=== PATIENT | male | born 1950 | race Caucasian/White ===

== ENCOUNTER 2017-06-16 07:16 | Emergency (ER) | payer BC ==
[~2017-06-16] VITALS: Ht 172.7 cm; Wt 85.3 kg
[2017-06-16 07:17] VITALS: TEMP 36.5; Ht 172.7 cm; Wt 85.3 kg
[2017-06-16 07:39] LABS: URINE APPEARANCE CLEAR (CLEAR); URINE BILIRUBIN NEG (NEG); URINE COLOR DK YELLOW; URINE NITRITE NEG (NEG); URINE SPECIFIC GRAVITY 1.027 (1.000-1.030); UROBILINOGEN NEG (NEG); ZZUR CULT IF INDIC CLEAN CATCH NO
[2017-06-16 07:47] LABS: MANUAL MICROSCOPIC REQUIRED? NO; REVIEW REQ? NO
--- NOTE | 2017-06-16 07:55 | EMERGENCY ROOM VISIT NOTE ---
History First contact with patient: 07:22 Chief Complaint: ABDOMINAL PAIN Stated Complaint: PAIN IN LWR LEFT ABDOMEN Nursing Triage Summary: pt reports sensitivity in left lower abd recently moved down into hip and around to back pain is just below rib cage per pt. denies any n/v/d/c. reports lots of gas. appetite has also changed not wanting to eat because it makes him feel worse History of Present Illness The patient is a 67 year old male who presents to the Emergency Room with complaints of LLQ discomfort for the past 5 months on and off. He describes it as a colicky "pressure" or achiness, and does not describe sharp pain. episodes last around 3 hours at a time. Last night he was concerned as the pressure was more frequent and severe, rating it at a 7/10 level of discomfort. He reports discomfort more after eating and later in the day when he is more sedentary. He reports he is more gassy than usual. No change in stool consistency or color or frequency; he states he goes once daily regularly. Has noticed a diminished appetite related to not wanting to exacerbate symptoms. He denies diarrhea or vomiting. He denies fever or recent URI. He denies ran blood in his stool as well as black tarry stool. His last colonoscopy was in 2008 and was normal. He has GERD and takes zantac twice daily, previously on pantoprazole. His only abdominal surgery was in 1980 for removal of an esophageal polyp which was found to be non-cancerous. He has no PMH of renal calculi. The antacids help the discomfort temporarily but do not get rid of the problem. There is a positive family history of diverticulitis and renal calculi but no other significant fam hx of colon cancer, etc. Review of Systems See HPI for pertinent positives and negatives. A total of ten systems were reviewed and were otherwise negative. Past Medical/Surgical History Medical Problems: (1) Hypertension Social History Smoking Status: Never Smoker Marital Status: Housing Status: lives with family Occupation Status: retired Current/Historical Medications Scheduled Atorvastatin (Lipitor), 10 MG PO DAILY Ranitidine (Zantac), 150 MG PO BID Valsartan (Diovan), 80 MG PO DAILY Allergies Coded Allergies: Lisinopril (Unverified Allergy, Mild, cough, 06/16/17) Codeine (Verified Allergy, Unknown, RASH, 06/16/17) Uncoded Allergies: PENICILLIN (Allergy, Mild, RASH, 06/15/12) Resident Involvement: Resident Care Provided Care Provided: Adult ED Physical Exam Vital Signs Date Time Temp Pulse Resp B/P (MAP) Pulse Ox O2 Delivery O2 Flow Rate FiO2 06/16/17 07:17 36.5 61 18 149/85 98 Room Air Pain Rating (0-10): 7 Physical Exam GENERAL: Awake, alert, not ill appearing, no distress HEAD: Normocephalic, atraumatic. No edema. EYES: Normal conjunctiva. Sclera non-icteric. OROPHARYNX: Lips, tongue, and mucosa unremarkable. No erythema or exudate. NECK: Supple. No nuchal rigidity. FROM. No adenopathy. RESPIRATORY: CTA bilaterally. No wheezes rales or rhonchi. CARDIAC: Borderline tachycardic rate, normal rhythm. ABDOMEN: Soft, non distended. tenderness to palpation on left lateral lower quadrant. No rebound or guarding. MUSCULOSKELETAL: Atraumatic. No edema. No pain on hip examination, full ROM NEURO: Normal sensorium. SKIN: No rash or jaundice noted Medical Decision & Procedures Laboratory Results 06/16/17 07:50 Red Blood Count 4.86, Mean Corpuscular Volume 92.4, Mean Corpuscular Hemoglobin 32.3, Mean Corpuscular Hemoglobin Concent 35.0, Mean Platelet Volume 10.9, Neutrophils (%) (Auto) 44.2, Lymphocytes (%) (Auto) 41.7, Monocytes (%) (Auto) 9.2, Eosinophils (%) (Auto) 4.5, Basophils (%) (Auto) 0.4, Neutrophils # (Auto) 2.98, Lymphocytes # (Auto) 2.81, Monocytes # (Auto) 0.62, Eosinophils # (Auto) 0.30, Basophils # (Auto) 0.03 06/16/17 07:50 Test 06/16/17 07:25 06/16/17 07:50 Urine Color DK YELLOW Urine Appearance CLEAR (CLEAR) Urine pH 7.0 (4.5-7.5) Urine Specific [place] 1.027 (1.000-1.030) Urine Protein NEG (NEG) Urine Glucose (UA) NEG (NEG) Urine Ketones TRACE (NEG) Urine Occult Blood NEG (NEG) Urine Nitrite NEG (NEG) Urine Bilirubin NEG (NEG) Urine Urobilinogen NEG (NEG) Urine Leukocyte Esterase NEG (NEG) Urine WBC (Auto) 1-5 /hpf (0-5) Urine RBC (Auto) 0-4 /hpf (0-4) Urine Hyaline Casts (Auto) 1-5 /lpf (0-5) Urine Epithelial Cells (Auto) 10-20 /lpf (0-5) Urine Bacteria (Auto) NEG (NEG) White Blood Count 6.74 K/uL (4.8-10.8) Red Blood Count 4.86 M/uL (4.7-6.1) Hemoglobin 15.7 g/dL (14.0-18.0) Hematocrit 44.9 % (42-52) Mean Corpuscular Volume 92.4 fL (80-100) Mean Corpuscular Hemoglobin 32.3 pg (25-34) Mean Corpuscular Hemoglobin Concent 35.0 g/dl (32-36) Platelet Count 175 K/uL (130-400) Mean Platelet Volume 10.9 fL (7.4-10.4) Neutrophils (%) (Auto) 44.2 % Lymphocytes (%) (Auto) 41.7 % Monocytes (%) (Auto) 9.2 % Eosinophils (%) (Auto) 4.5 % Basophils (%) (Auto) 0.4 % Neutrophils # (Auto) 2.98 K/uL (1.4-6.5) Lymphocytes # (Auto) 2.81 K/uL (1.2-3.4) Monocytes # (Auto) 0.62 K/uL (0.11-0.59) Eosinophils # (Auto) 0.30 K/uL (0-0.5) Basophils # (Auto) 0.03 K/uL (0-0.2) RDW Standard Deviation 42.5 fL (36.4-46.3) RDW Coefficient of Variation 12.6 % (11.5-14.5) Immature Granulocyte % (Auto) 0.0 % Immature Granulocyte # (Auto) 0.00 K/uL (0.00-0.02) Anion Gap 8.0 mmol/L (3-11) Est Creatinine Clear Calc Drug Dose 72.6 ml/min Estimated GFR () 84.7 Estimated GFR (Non- 73.1 BUN/Creatinine Ratio 19.0 (10-20) Calcium Level 9.1 mg/dl (8.5-10.1) Total Bilirubin 1.0 mg/dl (0.2-1) Direct Bilirubin 0.2 mg/dl (0-0.2) Aspartate Amino Transf (AST/SGOT) 24 U/L (15-37) Alanine Aminotransferase (ALT/SGPT) 46 U/L (12-78) Alkaline Phosphatase 47 U/L (45-117) Total Protein 7.3 gm/dl (6.4-8.2) Albumin 3.9 gm/dl (3.4-5.0) Lipase 183 U/L (73-393) Medications Administered Medications (Trade) Dose Ordered Sig/Anthony Route Start Time Stop Time Status Last Admin Dose Admin Sodium Chloride 999 ml @ 999 mls/hr Q1H IV 06/16/17 08:00 06/16/17 08:12 DC 06/16/17 08:12 999 MLS/HR ED Course 0720: first contact with patient, full H&P obtained 0800: 500 ml bolus NSS ordered, CT Abdo/pelvis with IV contrast ordered. 0900: updated patient on results of CT scan; discussed using miralax daily for 1 -2 weeks and monitor response to LLQ discomfort. Medical Decision Prior records/ancillary studies reviewed. Triage Nursing notes reviewed. The patient's history was concerning for abdominal pain. Differential diagnosis: Etiologies such as appendicitis, diverticulitis, PUD, biliary pathology, UTI, pancreatitis, obstruction, mesenteric ischemia, aortic pathology, infections, inflammatory bowel disease, renal colic, as well as others were entertained. Physical examination findings: As above. ER treatment provided: 500 mL NSS bolus, Ct Abdo/pelvis Diagnostics interpreted by me: The labs revealed NAD Imaging studies: CT SCAN OF THE ABDOMEN AND PELVIS WITH IV CONTRAST CLINICAL HISTORY: Left lower quadrant abdominal pain. COMPARISON STUDY: Abdominal ultrasound dated 06/22/2013. TECHNIQUE: Following the IV administration of 93 cc of Optiray 320, CT scan of the abdomen and pelvis is performed from the lung bases to the proximal femora. Images are reviewed in the axial, sagittal, and coronal planes. IV contrast was administered without complication. A dose lowering technique was utilized adhering to the principles of ALARA. CT DOSE: 468.77 mGy.cm FINDINGS: Lung bases: The heart is enlarged and without pericardial effusion. There are coronary artery calcifications. Foci of atelectasis versus scarring are present at the lung bases, left greater than right. No airspace consolidation or pleural effusion is seen. There is a small hiatal hernia. Liver: The contrast-enhanced liver is normal in size, contour, and attenuation. There is no intrahepatic biliary ductal dilatation. The hepatic veins and portal veins are patent. Gallbladder: Unremarkable. Spleen: Normal in size and attenuation. Pancreas: Unremarkable. Adrenal glands: Unremarkable. Kidneys: The contrast enhanced kidneys are normal in size and without hydronephrosis. The kidneys enhance symmetrically. There is a 2 mm nonobstructing right renal calculus. Abdominal vasculature: The abdominal aorta is normal in course and caliber noting moderate atherosclerotic calcification. Bowel: There are scattered colonic diverticula without CT evidence of acute diverticulitis. No bowel obstruction is seen. Moderate colonic fecal retention is observed. The appendix is well-visualized and normal. Peritoneum: There is no intraperitoneal free air or abdominal ascites. There is a fat-containing umbilical hernia. Lymphadenopathy: None. Pelvic viscera: The prostate gland is mildly enlarged and heterogeneous. The bladder is normal as visualized. Skeletal structures: There is moderate lumbosacral spondylosis. No lytic or blastic lesions are seen. IMPRESSION: 1. There are no acute infectious or inflammatory findings in the abdomen or pelvis. 2. Cardiomegaly. 3. There is a tiny nonobstructing right renal calculus. 4. Moderate constipation. No bowel obstruction is seen. 5. Additional findings as above. Referral: The patient was referred back to their primary care physician for follow-up in 2 to 3 days for a recheck of the current condition. Discussed using miralax daily for 1-2 weeks and adjusting dose if loose stool develop. If no improvement of discomfort, please return to ED or PCP. Impression Primary Impression: Abdominal pain Departure Information Dispostion Home / Self-Care Condition GOOD Referrals No Doctor, Assigned (PCP) Patient Instructions Abdominal Pain - [facility], Pending Sale To [facility]
[2017-06-16] MEDS ORDERED: SODIUM CHLORIDE 0.9% 500ML 500 ML IV SCH ×2 (08:00→09:00)
[2017-06-16 08:01] LABS: BASO % 0.4 %; BASO ABS # 0.03 K/uL (0-0.2); COMPLETE YES; EOS % 4.5 %; HEMATOCRIT 44.9 % (42-52); LYMPH % 41.7 %; LYMPH ABS # 2.81 K/uL (1.2-3.4); MEAN CELL VOLUME 92.4 fL (80-100); MEAN CORPUSCULAR HEMOGLOBIN 32.3 pg (25-34); MEAN PLATELET VOLUME 10.9 fL (7.4-10.4); MONO % 9.2 %; NEUT % 44.2 %; PLATELET COUNT 175 K/uL (130-400); RED BLOOD COUNT 4.86 M/uL (4.7-6.1); WHITE BLOOD COUNT 6.74 K/uL (4.8-10.8)
[2017-06-16] MEDS ORDERED: SODIUM CHLORIDE 0.9% 500ML 500 ML IV ONE (08:01)
[2017-06-16 08:12] LABS: CALCIUM 9.1 mg/dl (8.5-10.1); CREATININE 1.05 mg/dl (0.60-1.40)
[2017-06-16] MEDS ORDERED: ZNTT/150 PO (08:22)
[2017-06-16] MEDS ORDERED: DVN80 PO (08:22)
[2017-06-16] MEDS ORDERED: ATOR10TA82 PO (08:22)
[2017-06-16] MEDS ORDERED: OPTIRAY 320 IV PRN (08:45)
--- NOTE | 2017-06-16 08:49 | DIAGNOSTIC IMAGING REPORT ---
CT SCAN OF THE ABDOMEN AND PELVIS WITH IV CONTRAST CLINICAL HISTORY: Left lower quadrant abdominal pain. COMPARISON STUDY: Abdominal ultrasound dated 06/22/2013. TECHNIQUE: Following the IV administration of 93 cc of Optiray 320, CT scan of the abdomen and pelvis is performed from the lung bases to the proximal femora. Images are reviewed in the axial, sagittal, and coronal planes. IV contrast was administered without complication. A dose lowering technique was utilized adhering to the principles of ALARA. CT DOSE: 468.77 mGy.cm FINDINGS: Lung bases: The heart is enlarged and without pericardial effusion. There are coronary artery calcifications. Foci of atelectasis versus scarring are present at the lung bases, left greater than right. No airspace consolidation or pleural effusion is seen. There is a small hiatal hernia. Liver: The contrast-enhanced liver is normal in size, contour, and attenuation. There is no intrahepatic biliary ductal dilatation. The hepatic veins and portal veins are patent. Gallbladder: Unremarkable. Spleen: Normal in size and attenuation. Pancreas: Unremarkable. Adrenal glands: Unremarkable. Kidneys: The contrast enhanced kidneys are normal in size and without hydronephrosis. The kidneys enhance symmetrically. There is a 2 mm nonobstructing right renal calculus. Abdominal vasculature: The abdominal aorta is normal in course and caliber noting moderate atherosclerotic calcification. Bowel: There are scattered colonic diverticula without CT evidence of acute diverticulitis. No bowel obstruction is seen. Moderate colonic fecal retention is observed. The appendix is well-visualized and normal. Peritoneum: There is no intraperitoneal free air or abdominal ascites. There is a fat-containing umbilical hernia. Lymphadenopathy: None. Pelvic viscera: The prostate gland is mildly enlarged and heterogeneous. The bladder is normal as visualized. Skeletal structures: There is moderate lumbosacral spondylosis. No lytic or blastic lesions are seen. IMPRESSION: 1. There are no acute infectious or inflammatory findings in the abdomen or pelvis. 2. Cardiomegaly. 3. There is a tiny nonobstructing right renal calculus. 4. Moderate constipation. No bowel obstruction is seen. 5. Additional findings as above. Electronically signed by: Naveed Quintana M.D. 06/16/2017 8:47 AM Dictated Date/Time: 06/16/2017 8:42 AM
[2017-06-16 09:27] VITALS: BP 174/74; PULSE 45; O2SAT 100
--- NOTE | 2017-06-16 14:05 | EMERGENCY ROOM VISIT NOTE ---
History Report prepared by Heriberto: Maggie Lopez Under the Supervision of: Rickie BansalO. First contact with patient: 07:22 Chief Complaint: ABDOMINAL PAIN Stated Complaint: PAIN IN LWR LEFT ABDOMEN Nursing Triage Summary: pt reports sensitivity in left lower abd recently moved down into hip and around to back pain is just below rib cage per pt. denies any n/v/d/c. reports lots of gas. appetite has also changed not wanting to eat because it makes him feel worse History of Present Illness The patient is a 67 year old male who presents to the Emergency Room with complaints of intermittent left lower quadrant abdominal pain for the past five months that worsened last evening. He currently rates his discomfort as a 3/10 in severity, but states that last evening his pain was a 7/10 in severity. The patient reports increased gas today, but denies any change in medications. He reports a decrease in appetite. The patient states that the pain has been radiating into his left hip. He states that he last had a normal colonoscopy in 2008. The patient describes his pain as an achy, colicky pain. The patient states that when each time his pain comes, it lasts for hours. He states that he has a history of GERD. The patient states that antacids helped to alleviate his pain. He denies any history of kidney stones. The patient denies headache , change in vision, fevers, chest pain, shortness of breath, nausea, vomiting, diarrhea, pain with urination, and melena. Source of History: patient Onset: past five months Position: abdomen (LLQ) Symptom Intensity: 3-7/10 Quality: ache, other (colicky) Timing: intermittent, worsening Note: Associated Symptoms: decrease in appetite, increased gas Review of Systems See HPI for pertinent positives & negatives. A total of 10 systems reviewed and were otherwise negative. Past Medical & Surgical Medical Problems: (1) Hypertension Family History Cancer Diabetes mellitus FH: lung disease Heart disease Hypertension Kidney disease Kidney stones Social History Smoking Status: Never Smoker Smokeless Tobacco Use: No Alcohol Use: none Marital Status: Housing Status: lives with significant other Occupation Status: retired Current/Historical Medications Scheduled Atorvastatin (Lipitor), 10 MG PO DAILY Ranitidine (Zantac), 150 MG PO BID Valsartan (Diovan), 80 MG PO DAILY Allergies Coded Allergies: Lisinopril (Unverified Allergy, Mild, cough, 06/16/17) Codeine (Verified Allergy, Unknown, RASH, 06/16/17) Uncoded Allergies: PENICILLIN (Allergy, Mild, RASH, 06/15/12) Physical Exam Vital Signs Date Time Temp Pulse Resp B/P (MAP) Pulse Ox O2 Delivery O2 Flow Rate FiO2 06/16/17 09:27 45 16 174/74 100 06/16/17 07:17 36.5 61 18 149/85 98 Room Air Physical Exam GENERAL: Sitting up in bed, alert, well appearing, well nourished, no distress, non-toxic EYE EXAM: normal conjunctiva. OROPHARYNX: no exudate, no erythema, lips, buccal mucosa, and tongue normal and mucous membranes are moist NECK: supple, no nuchal rigidity, no adenopathy, non-tender LUNGS: Clear to auscultation. Normal chest wall mechanics HEART: no murmurs, S1 normal and S2 normal ABDOMEN: abdomen soft, faint tenderness over the left iliac wing, normo-active bowel sounds, no masses, no rebound or guarding. : Normal circumcised male genitalia, testicles are nontender, no appreciable masses BACK: Back is symmetrical on inspection and there is no deformity, no midline tenderness, no CVA tenderness. SKIN: no rashes and no bruising UPPER EXTREMITIES: upper extremities are grossly normal. LOWER EXTREMITIES: No pitting edema. NEURO EXAM: Normal sensorium, cranial nerves II-XII grossly intact, normal speech, no gross weakness of arms, no gross weakness of legs. Medical Decision & Procedures ER Provider Diagnostic Interpretation: CT:Per my review, radiologist interpretation. CT SCAN OF THE ABDOMEN AND PELVIS WITH IV CONTRAST CLINICAL HISTORY: Left lower quadrant abdominal pain. COMPARISON STUDY: Abdominal ultrasound dated 06/22/2013. TECHNIQUE: Following the IV administration of 93 cc of Optiray 320, CT scan of the abdomen and pelvis is performed from the lung bases to the proximal femora. Images are reviewed in the axial, sagittal, and coronal planes. IV contrast was administered without complication. A dose lowering technique was utilized adhering to the principles of ALARA. CT DOSE: 468.77 mGy.cm FINDINGS: Lung bases: The heart is enlarged and without pericardial effusion. There are coronary artery calcifications. Foci of atelectasis versus scarring are present at the lung bases, left greater than right. No airspace consolidation or pleural effusion is seen. There is a small hiatal hernia. Liver: The contrast-enhanced liver is normal in size, contour, and attenuation. There is no intrahepatic biliary ductal dilatation. The hepatic veins and portal veins are patent. Gallbladder: Unremarkable. Spleen: Normal in size and attenuation. Pancreas: Unremarkable. Adrenal glands: Unremarkable. Kidneys: The contrast enhanced kidneys are normal in size and without hydronephrosis. The kidneys enhance symmetrically. There is a 2 mm nonobstructing right renal calculus. Abdominal vasculature: The abdominal aorta is normal in course and caliber noting moderate atherosclerotic calcification. Bowel: There are scattered colonic diverticula without CT evidence of acute diverticulitis. No bowel obstruction is seen. Moderate colonic fecal retention is observed. The appendix is well-visualized and normal. Peritoneum: There is no intraperitoneal free air or abdominal ascites. There is a fat-containing umbilical hernia. Lymphadenopathy: None. Pelvic viscera: The prostate gland is mildly enlarged and heterogeneous. The bladder is normal as visualized. Skeletal structures: There is moderate lumbosacral spondylosis. No lytic or blastic lesions are seen. IMPRESSION: 1. There are no acute infectious or inflammatory findings in the abdomen or pelvis. 2. Cardiomegaly. 3. There is a tiny nonobstructing right renal calculus. 4. Moderate constipation. No bowel obstruction is seen. 5. Additional findings as above. Electronically signed by: Naveed Quintana M.D. 06/16/2017 8:47 AM Dictated Date/Time: 06/16/2017 8:42 AM Laboratory Results 06/16/17 07:50 Red Blood Count 4.86, Mean Corpuscular Volume 92.4, Mean Corpuscular Hemoglobin 32.3, Mean Corpuscular Hemoglobin Concent 35.0, Mean Platelet Volume 10.9, Neutrophils (%) (Auto) 44.2, Lymphocytes (%) (Auto) 41.7, Monocytes (%) (Auto) 9.2, Eosinophils (%) (Auto) 4.5, Basophils (%) (Auto) 0.4, Neutrophils # (Auto) 2.98, Lymphocytes # (Auto) 2.81, Monocytes # (Auto) 0.62, Eosinophils # (Auto) 0.30, Basophils # (Auto) 0.03 06/16/17 07:50 Test 06/16/17 07:25 06/16/17 07:50 Urine Color DK YELLOW Urine Appearance CLEAR (CLEAR) Urine pH 7.0 (4.5-7.5) Urine Specific [place] 1.027 (1.000-1.030) Urine Protein NEG (NEG) Urine Glucose (UA) NEG (NEG) Urine Ketones TRACE (NEG) Urine Occult Blood NEG (NEG) Urine Nitrite NEG (NEG) Urine Bilirubin NEG (NEG) Urine Urobilinogen NEG (NEG) Urine Leukocyte Esterase NEG (NEG) Urine WBC (Auto) 1-5 /hpf (0-5) Urine RBC (Auto) 0-4 /hpf (0-4) Urine Hyaline Casts (Auto) 1-5 /lpf (0-5) Urine Epithelial Cells (Auto) 10-20 /lpf (0-5) Urine Bacteria (Auto) NEG (NEG) White Blood Count 6.74 K/uL (4.8-10.8) Red Blood Count 4.86 M/uL (4.7-6.1) Hemoglobin 15.7 g/dL (14.0-18.0) Hematocrit 44.9 % (42-52) Mean Corpuscular Volume 92.4 fL (80-100) Mean Corpuscular Hemoglobin 32.3 pg (25-34) Mean Corpuscular Hemoglobin Concent 35.0 g/dl (32-36) Platelet Count 175 K/uL (130-400) Mean Platelet Volume 10.9 fL (7.4-10.4) Neutrophils (%) (Auto) 44.2 % Lymphocytes (%) (Auto) 41.7 % Monocytes (%) (Auto) 9.2 % Eosinophils (%) (Auto) 4.5 % Basophils (%) (Auto) 0.4 % Neutrophils # (Auto) 2.98 K/uL (1.4-6.5) Lymphocytes # (Auto) 2.81 K/uL (1.2-3.4) Monocytes # (Auto) 0.62 K/uL (0.11-0.59) Eosinophils # (Auto) 0.30 K/uL (0-0.5) Basophils # (Auto) 0.03 K/uL (0-0.2) RDW Standard Deviation 42.5 fL (36.4-46.3) RDW Coefficient of Variation 12.6 % (11.5-14.5) Immature Granulocyte % (Auto) 0.0 % Immature Granulocyte # (Auto) 0.00 K/uL (0.00-0.02) Anion Gap 8.0 mmol/L (3-11) Est Creatinine Clear Calc Drug Dose 72.6 ml/min Estimated GFR () 84.7 Estimated GFR (Non- 73.1 BUN/Creatinine Ratio 19.0 (10-20) Calcium Level 9.1 mg/dl (8.5-10.1) Total Bilirubin 1.0 mg/dl (0.2-1) Direct Bilirubin 0.2 mg/dl (0-0.2) Aspartate Amino Transf (AST/SGOT) 24 U/L (15-37) Alanine Aminotransferase (ALT/SGPT) 46 U/L (12-78) Alkaline Phosphatase 47 U/L (45-117) Total Protein 7.3 gm/dl (6.4-8.2) Albumin 3.9 gm/dl (3.4-5.0) Lipase 183 U/L (73-393) Laboratory results per my review. Medications Administered Medications (Trade) Dose Ordered Sig/Anthony Route Start Time Stop Time Status Last Admin Dose Admin Sodium Chloride 999 ml @ 999 mls/hr Q1H IV 06/16/17 08:00 06/16/17 08:12 DC 06/16/17 08:12 999 MLS/HR ED Course ED COURSE: Vital signs were reviewed and showed hypertensive The patients medical record was reviewed The above diagnostic studies were performed and reviewed. ED treatments and interventions as stated above. 0722: The patient was evaluated in room B11B by Dr. Colvin, Agricultural Agent. A complete history and physical examination was performed. 0749: The patient was evaluated in room B11B. A complete history and physical examination was performed. 0800: Ordered 999 ml @ 999 mls/hr IV. 0910: Upon reevaluation, the patient is resting comfortably..I discussed my findings with the patient and he understands and agrees with the treatment plan. Based on the patients age, coexisting illnesses, exam and lab findings the decision to treat as an outpatient was made. The patient remained stable while under my care. The patient appeared well at the time of discharge. Medical Decision Differential diagnoses includes but is not limited to gastritis, peptic ulcer disease, GERD, gallbladder disease, pancreatitis, small bowel obstruction, acute coronary syndrome, pericarditis, ischemic bowel, irritable bowel disease, irritable bowel syndrome, appendicitis, diverticulitis, malignancy, hernia, urinary tract infection, torsion, perforation, trauma, infectious. Patient is a 67-year-old male who presents to ER for left lower quadrant abdominal pain going into his left hip. No fevers. He notes this has been coming going for the past 5 months. Nothing makes it better or worse. Colonoscopy in 09. Abdominal exam is benign. CBC all BMP, LFTs, bilirubin lipase is unremarkable. UA was negative. CT abdomen and pelvis shows no acute pathology. CT did suggest a possible component of constipation. Patient was updated bedside. He was discharged follow-up with his PCP. He was seen independently of the resident. Discussed with Pt concerning signs and symptoms to watch out for. Pt was instructed to follow up with their PCP and discussed with the patient their option to return to the ED at anytime for persistent or worsening symptoms. The appropriate anticipatory guidance and out-patient management, including indications for return to the emergency department, were explained at length to the patient and understood. Medication Reconcilliation Current Medication List: was personally reviewed by me Blood Pressure Screening Patient's blood pressure: Elevated blood pressure Blood pressure disposition: Elevated BP felt to be situational, Did not require urgent referral Impression Primary Impression: Abdominal pain Scribe Attestation The scribe's documentation has been prepared under my direction and personally reviewed by me in its entirety. I confirm that the note above accurately reflects all work, treatment, procedures, and medical decision making performed by me. Departure Information Dispostion Home / Self-Care Referrals No Doctor, Assigned (PCP) Forms Call Back Authorization, HOME CARE DOCUMENTATION FORM, IMPORTANT VISIT INFORMATION Patient Instructions Abdominal Pain - [facility], My [facility] Additional Instructions Please follow up with your primary care doctor with in the next 24 hours. Any worsening of your symptoms, please return to the ED immediately. This includes any fevers greater than 100.4, worsening pain, chest pain, shortness breath, persistent nausea, vomiting, unable to eat or drink, or any other concerning signs or symptoms from your standpoint. Please take 6 capfuls of MiraLAX mixed with 32 ounces of Gatorade. This will likely cause diarrhea and help remove/improve your constipation. Problem Qualifiers Primary Impression: Abdominal pain Abdominal location: left lower quadrant Qualified Codes: R10.32 - Left lower quadrant pain
== END 2017-06-16 09:27 | disposition home or self-care (01) ==
LOC: C.EDB 07:17
DX: R10.32 Left lower quadrant pain (principal); K21.9 Gastro-esophageal reflux disease without esophagitis; I10 Essential (primary) hypertension; Z82.49 Family history of ischemic heart disease and other diseases of the circulatory system; Z83.6 Family history of other diseases of the respiratory system; Z83.79 Family history of other diseases of the digestive system; Z84.1 Family history of disorders of kidney and ureter